=== PATIENT | male | born 1965 | race American Indian/Alaskan Native ===

== ENCOUNTER 2022-01-06 11:39 | Emergency (ER) | payer SELFPAY ==
[2022-01-06] MEDS ORDERED: ASPIRIN 325 MG TAB PO ONE (12:08)
--- NOTE | 2022-01-06 12:08 | Event Note ---
ED Screening Note ED Screening Note: 56 yo hx htn with chest pressure and dizziness on amlodipine pos fam hx- dad dec cad/ mom dec dm smoker/thc/etoh This initial assessment/diagnostic orders/clinical plan/treatment(s) is/are subject to change based on patients health status, clinical progression and re- assessment by fellow clinical providers in the ED. Further treatment and workup at subsequent clinical providers discretion. Patient/guardian urged not to elope from the ED as their condition may be serious if not clinically assessed and managed. Initial orders include: ro ACS Vital Signs 01/06/22 11:55 Temperature 98.2 F Pulse Rate 81 Respiratory 18 Rate Blood Pressure 143/89 O2 Sat by Pulse 99 Oximetry
--- NOTE | 2022-01-06 12:25 | XRay Report ---
CHEST 2 VIEWS INDICATION: Chest pain. COMPARISON: none FINDINGS: Support devices: None. Heart: Within normal limits. Lungs/pleura: No acute air space or interstitial disease. No pleural abnormality or pneumothorax. Additional findings: None. IMPRESSION: No acute findings. Signer Name: Ki Bain Jr, MD Signed: 01/06/2022 12:21 PM Workstation Name: [id number]
[2022-01-06 12:57] LABS: Basophils # (Auto) 0.1 K/mm3 (0.0-0.1); Basophils % (Auto) 1.2 % (0.0-1.8); Eosinophils # (Auto) 0.1 K/mm3 (0.0-0.4); Eosinophils % (Auto) 1.7 % (0.0-4.3); Hematocrit 50.6 % (35.5-45.6); Hemoglobin 16.8 gm/dl (11.8-15.2); Lymphocytes # (Auto) 1.9 K/mm3 (1.2-5.4); Lymphocytes % (Auto) 21.7 % (13.4-35.0); Mean Corpuscular HGB Conc 33 % (32-34); Mean Corpuscular Volume 89 fl (84-94); Monocytes # (Auto) 0.6 K/mm3 (0.0-0.8); Monocytes % (Auto) 7.4 % (0.0-7.3); Platelet Count 325 K/mm3 (140-440); Red Blood Count 5.71 M/mm3 (3.65-5.03); Red Cell Distribution Width 13.7 % (13.2-15.2)
[2022-01-06 13:13] LABS: Alanine Aminotransferase 35 units/L (7-56); Albumin 4.5 g/dL (3.9-5); BUN/Creatinine Ratio 14; Blood Urea Nitrogen 13 mg/dL (9-20); Hemolysis Index 13
--- NOTE | 2022-01-06 13:32 | Emergency Department Report ---
ED Chest Pain HPI - General Chief Complaint: Chest Pain Stated Complaint: CHEST PAIN/BP HIGH Time Seen by Provider: 01/06/22 12:09 Source: patient Mode of arrival: Ambulatory Limitations: No Limitations - History of Present Illness Initial Comments: 56 year-old male with a past medical history of hypertension, tobacco use, and family history of CAD presents to the hospital complaints of intermittent chest pain and palpitations since last night. Patient describes pain as a intermittent tightness with associated lightheadedness but denies nausea, vom iting, diaphoresis, aggravating or alleviating factors. Patient went to the dentist office today and states his pressure was 189/126 and therefore he was sent to the ER for evaluation. Patient has been compliant with his daily a.m. dose of amlodipine. Last stress test greater than 5 years ago. Patient did have symptoms upon arrival but is currently asymptomatic - Related Data Home Medications Medication Instructions Recorded Confirmed Last Taken amLODIPine [Norvasc] 5 mg PO DAILY 01/06/22 01/06/22 01/06/22 Previous Rx's Medication Instructions Recorded Last Taken Type Aspirin 325 mg PO ONCE #30 tablet 01/06/22 Unknown Rx Allergies Allergy/AdvReac Type Severity Reaction Status Date / Time No Known Allergies Allergy Verified 01/06/22 11:57 Heart Score - HEART Score History: Slightly suspicious EKG: Non-specific Age: 45-65 Risk factors: > 3 risk factors or hx of atherosclerotic disease Troponin: < normal limit HEART Score: 4 - EKG Read Time Time EKG Completed: 11:48 EKG Read Time: 11:52 ED Review of Systems ROS: Stated complaint: CHEST PAIN/BP HIGH Other details as noted in HPI ED Past Medical Hx - Past Medical History Hx Hypertension: Yes - Medications Home Medications: Home Medications Medication Instructions Recorded Confirmed Last Taken Type Aspirin 325 mg PO ONCE #30 tablet 01/06/22 Unknown Rx amLODIPine [Norvasc] 5 mg PO DAILY 01/06/22 01/06/22 01/06/22 History ED Physical Exam - General Limitations: No Limitations - Other Other exam information: General: No acute distress Head: Atraumatic Eyes: normal appearance ENT: Moist mucous membranes Neck: Normal appearance, no midline tenderness Chest: Clear to auscultation bilaterally CV: Regular rate and rhythm Abdomen: Soft, normal bowel sounds, nontender, nondistended, no rebound or guarding Back: Normal inspection Extremity: Normal inspection, full range of motion, no calf tenderness or leg Neuro: Alert O x 3, no facial asymmetry, speech clear, no gross motor sensory deficit Psych: Appropriate behavior Skin: No rash ED Course Vital Signs 01/06/22 11:55 Temperature 98.2 F Pulse Rate 81 Respiratory 18 Rate Blood Pressure 143/89 O2 Sat by Pulse 99 Oximetry LORELEI score - Lorelei Score Age > 65: (0) No Aspirin use within the Past 7 Days: (0) No 3 or more CAD Risk Factors: (1) Yes 2 or more Angina events in past 24 hrs: (1) Yes Known CAD with more than 50% Stenosis: (0) No Elevated Cardiac Markers: (0) No ST Deviation Greater than 0.5mm: (0) No LORELEI Score: 2 ED Medical Decision Making - Lab Data Result diagrams: 01/06/22 12:16 01/06/22 12:16 Lab Results 01/06/22 01/06/22 Range/Units 12:16 12:16 WBC 8.6 (4.5-11.0) K/mm3 RBC 5.71 H (3.65-5.03) M/mm3 Hgb 16.8 H (11.8-15.2) gm/dl Hct 50.6 H (35.5-45.6) % MCV 89 (84-94) fl MCH 30 (28-32) pg MCHC 33 (32-34) % RDW 13.7 (13.2-15.2) % Plt Count 325 (140-440) K/mm3 Lymph % (Auto) 21.7 (13.4-35.0) % [place] % (Auto) 7.4 H (0.0-7.3) % Eos % (Auto) 1.7 (0.0-4.3) % Baso % (Auto) 1.2 (0.0-1.8) % Lymph # (Auto) 1.9 (1.2-5.4) K/mm3 [place] # (Auto) 0.6 (0.0-0.8) K/mm3 Eos # (Auto) 0.1 (0.0-0.4) K/mm3 Baso # (Auto) 0.1 (0.0-0.1) K/mm3 Seg Neutrophils % 68.0 (40.0-70.0) % Seg Neutrophils # 5.8 (1.8-7.7) K/mm3 Sodium 140 (137-145) mmol/L Potassium 3.8 (3.6-5.0) mmol/L Chloride 103.2 (98-107) mmol/L Carbon Dioxide 26 (22-30) mmol/L Anion Gap 15 mmol/L BUN 13 (9-20) mg/dL Creatinine 0.9 (0.8-1.3) mg/dL Estimated GFR > 60 ml/min BUN/Creatinine Ratio 14 % Glucose 96 (75-100) mg/dL Calcium 10.0 (8.4-10.2) mg/dL Total Bilirubin 0.30 (0.1-1.2) mg/dL AST 27 (5-40) units/L ALT 35 (7-56) units/L Alkaline Phosphatase 147 H (35-129) units/L Troponin T < 0.010 (0.00-0.029) ng/mL Total Protein 7.3 (6.3-8.2) g/dL Albumin 4.5 (3.9-5) g/dL Albumin/Globulin Ratio 1.6 % - EKG Data -: EKG Interpreted by Wy EKG shows normal: sinus rhythm, ST-T waves (no stemi,) Rate: normal (79) - Radiology Data Radiology results: report reviewed CHEST 2 VIEWS INDICATION: Chest pain. COMPARISON: none FINDINGS: Support devices: None. Heart: Within normal limits. Lungs/pleura: No acute air space or interstitial disease. No pleural abnormality or pneumothorax. Additional findings: None. IMPRESSION: No acute findings. - Medical Decision Making 56-year-old male with chest pain and several risk factors with a heart score of 4 whom admission for stress test was recommended. I explained that although labs did not show that he has had a heart attack at this time he may still have unstable angina and be at risk for VT. Admission for stress testing recommended. Patient declined and prefers to follow-up as an outpatient. 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 He was counseled to return immediately if he experiencing worsening chest pain, nausea, vomiting, diaphoresis, or pain radiation down left arm or jaw because these may be signs of a heart attack. Nurse at the bedside. Patient voices understanding Critical Care Time: No Critical care attestation.: If time is entered above; I have spent that time in minutes in the direct care of this critically ill patient, excluding procedure time. ED Disposition Clinical Impression: Chest pain, Hypertension Disposition: LEFT AGAINST MEDICAL ADVICE Is pt being admited?: No Does the pt Need Aspirin: No Condition: Stable Instructions: Nonspecific Chest Pain, Adult, Hypertension (ED) Additional Instructions: Take an aspirin daily. Declined admission at this time therefore I cannot rule out that you have a partial blockage of your heart that may lead to a heart attack. It is very important that you follow-up with a manager of community relations as soon as possible for outpatient stress testing. Return if symptoms worsen as indicated by your discharge instructions. Prescriptions: Aspirin 325 mg PO ONCE #30 tablet Referrals: DO KEARNS MD [Staff Physician] - 2-3 Days (call office for follow up and outpatient stress testing) Forms: Work/School Release Form(ED), AMA Form Time of Disposition: 14:00
[2022-01-06 14:27] VITALS: BP 162/93
== END 2022-01-06 14:31 | disposition left against medical advice (07) ==
LOC: ED 11:39
DX: R07.9 Chest pain, unspecified (principal); I10 Essential (primary) hypertension
CPT/HCPCS: 36415; 71046; 80053; 84484; 85025; 99283

== ENCOUNTER 2022-03-11 10:25 | Emergency (ER) | payer SELFPAY ==
[2022-03-11 11:47] LABS: INR 0.82 (0.87-1.13)
--- NOTE | 2022-03-11 11:52 | XRay Report ---
CHEST 2 VIEWS INDICATION / CLINICAL INFORMATION: Chest Pain. COMPARISON: 01/06/2022 FINDINGS: SUPPORT DEVICES: None. HEART / MEDIASTINUM: No significant abnormality. LUNGS / PLEURA: No significant pulmonary or pleural abnormality. No pneumothorax. ADDITIONAL FINDINGS: No significant additional findings. IMPRESSION: 1. No acute findings. Signer Name: Anatoliy Mcintyre MD Signed: 03/11/2022 11:43 AM Workstation Name: [id number]
[2022-03-11 11:59] LABS: Alanine Aminotransferase 32 units/L (7-56); Albumin 4.3 g/dL (3.9-5); BUN/Creatinine Ratio 16; Blood Urea Nitrogen 16 mg/dL (9-20); Calcium 9.4 mg/dL (8.4-10.2); Hemolysis Index 20
--- NOTE | 2022-03-11 15:57 | Emergency Department Report ---
ED Chest Pain HPI - General Chief Complaint: Chest Pain Stated Complaint: CHEST PAIN Time Seen by Provider: 03/11/22 15:29 Source: patient Mode of arrival: Ambulatory Limitations: No Limitations - History of Present Illness Initial Comments: 56-year-old black male with a past medical history of hypertension presents to the emergency department for evaluation of left chest pain that started last night. He states that pain is nonradiating and worse with breathing. He states that he is also had some intermittent shortness of breath with the chest pain. He denies nausea, vomiting, diaphoresis. He states that pain is very worse is 9 out of 10 but now he states that he is not having any pain at all. MD Complaint: chest pain -: Gradual, days(s) (1) Onset: during rest Pain Radiation: none Severity: moderate Severity scale (0 -10): 9 Quality: aching, sharp Consistency: intermittent Worsens With: inspiration re: dyspnea. denies: nausea, vomting, diaphoresis, sense of impending doom Other Symptoms: denies: cough, fever, syncope, acid taste in mouth, leg swelling, palpitations, burping Treatments Prior to Arrival: none Aspirin use within the Past 7 Days: (0) No - Related Data Home Medications Medication Instructions Recorded Confirmed Last Taken amLODIPine [Norvasc] 5 mg PO DAILY 01/06/22 01/06/22 01/06/22 Previous Rx's Medication Instructions Recorded Last Taken Type Aspirin 325 mg PO ONCE #30 tablet 01/06/22 Unknown Rx Naproxen [Naprosyn] 500 mg PO BID #14 tab 03/11/22 Unknown Rx Allergies Allergy/AdvReac Type Severity Reaction Status Date / Time No Known Allergies Allergy Verified 03/11/22 11:10 Heart Score - HEART Score History: Slightly suspicious EKG: Non-specific Age: 45-65 Risk factors: 1-2 risk factors Troponin: < normal limit HEART Score: 3 - EKG Read Time Time EKG Completed: 11:11 EKG Read Time: 11:20 - Critical Actions Critical Actions: 0-3 pts:0.9-1.7%risk of adverse cardiac event.Candidate for discharge ED Review of Systems ROS: Stated complaint: CHEST PAIN Other details as noted in HPI Comment: All other systems reviewed and negative Constitutional: denies: chills, fever, malaise, weakness ENT: denies: congestion Respiratory: shortness of breath. denies: cough, SOB with exertion, SOB at rest, stridor, wheezing Cardiovascular: chest pain. denies: palpitations, dyspnea on exertion, orthopnea, edema, syncope, paroxysmal nocturnal dyspnea Gastrointestinal: denies: abdominal pain, nausea, vomiting, diarrhea, hematemesis, melena, hematochezia Genitourinary: denies: urgency, dysuria, frequency, hematuria, discharge Musculoskeletal: denies: back pain Skin: denies: rash, lesions Neurological: denies: headache, weakness Psychiatric: denies: anxiety, depression ED Past Medical Hx - Past Medical History Hx Hypertension: Yes - Social History Smoking Status: Current Every Day Smoker Substance Use Type: Alcohol - Medications Home Medications: Home Medications Medication Instructions Recorded Confirmed Last Taken Type Aspirin 325 mg PO ONCE #30 tablet 01/06/22 Unknown Rx amLODIPine [Norvasc] 5 mg PO DAILY 01/06/22 01/06/22 01/06/22 History Naproxen [Naprosyn] 500 mg PO BID #14 tab 03/11/22 Unknown Rx ED Physical Exam - General Limitations: No Limitations General appearance: alert, in no apparent distress - Head Head exam: Present: atraumatic, normocephalic - Eye Eye exam: Present: normal appearance. Absent: conjunctival injection - Neck Neck exam: Present: normal inspection, full ROM. Absent: tenderness, lymphadenopathy - Respiratory Respiratory exam: Present: normal lung sounds bilaterally, chest wall ten derness. Absent: respiratory distress, wheezes, rales, rhonchi, stridor - Cardiovascular Cardiovascular Exam: Present: regular rate, normal heart sounds - GI/Abdominal GI/Abdominal exam: Present: soft, normal bowel sounds. Absent: distended, tenderness, guarding, rebound, rigid - Extremities Exam Extremities exam: Present: normal inspection, normal capillary refill. Absent: tenderness, pedal edema, joint swelling, calf tenderness - Back Exam Back exam: Present: normal inspection. Absent: CVA tenderness (R), CVA tenderness (L), vertebral tenderness - Neurological Exam Neurological exam: Present: alert, oriented X3, normal gait - Psychiatric Psychiatric exam: Present: normal affect, normal mood - Skin Skin exam: Present: warm, dry, intact, normal color ED Course Vital Signs 03/11/22 03/11/22 11:08 16:35 Temperature 98 F Pulse Rate 78 76 Respiratory 16 18 Rate Blood Pressure 138/92 Blood Pressure 136/85 [Right] O2 Sat by Pulse 98 99 Oximetry LORELEI score - Lorelei Score Age > 65: (0) No Aspirin use within the Past 7 Days: (0) No 3 or more CAD Risk Factors: (1) Yes 2 or more Angina events in past 24 hrs: (1) Yes Known CAD with more than 50% Stenosis: (0) No Elevated Cardiac Markers: (0) No ST Deviation Greater than 0.5mm: (0) No LORELEI Score: 2 ED Medical Decision Making - Lab Data Result diagrams: 03/11/22 11:21 - EKG Data EKG shows normal: sinus rhythm - EKG Data Interpretation: no acute changes - Radiology Data Radiology results: report reviewed, image reviewed - Medical Decision Making 56-year-old black male with a past medical history of hypertension presents to the emergency department for evaluation of left chest pain that started last night. He states that pain is nonradiating and worse with breathing. He states that he is also had some intermittent shortness of breath with the chest pain. He denies nausea, vomiting, diaphoresis. He states that pain at its very worse is 9 out of 10 but now he states that he is not having any pain at all. EKG without any acute ischemic changes noted, troponin within normal limits x2, chest x-ray without any acute abnormalities noted, chest pain resolved, and heart score of 3. Low suspicion for ACS. Patient will be discharged home with a prescription for naproxen and advised to follow-up with his primary care provider and cardiology for further evaluation and management. He is advised to return to the emergency department as needed. He verbalizes understanding of and agreement with plan of care. Critical care attestation.: If time is entered above; I have spent that time in minutes in the direct care of this critically ill patient, excluding procedure time. ED Disposition Clinical Impression: Chest pain Qualifiers: Chest pain type: unspecified Qualified Code(s): R07.9 - Chest pain, unspecified Disposition: 01 HOME / SELF CARE / HOMELESS Is pt being admited?: No Does the pt Need Aspirin: No Condition: Stable Instructions: Chest Wall Pain, [id number], Nonspecific Chest Pain, Adult Additional Instructions: Take medications as prescribed. Follow-up with primary care provider and cardiology for further evaluation and management. Return to the emergency department as needed. Prescriptions: Naproxen [Naprosyn] 500 mg PO BID #14 tab Referrals: PATRICIA AVILA MD [Primary Care Provider] - 3-5 Days DO KEARNS MD [Staff Physician] - 3-5 Days Forms: Work/School Release Form(ED) Time of Disposition: 15:56
[2022-03-11 16:36] VITALS: BP 138/92
--- NOTE | 2022-03-12 10:11 | Electrocardiograph Report ---
[facility] Test Date: 2022-03-11 Test Time: 11:11:23 Pat Name: CM IRAHETA Department: Room: Gender: M Weight Shifter: PATRICIO DRISCOLL: 1965 Requested By: ED DOC Order Number: [id number] Reading MD: Sravan Oconnor Measurements Intervals [place] Rate: 79 P: 60 SD: 156 QRS: 22 QRSD: 84 T: 23 QT: 353 QTc: 404 Interpretive Statements Sinus rhythm Consider left ventricular hypertrophy ST elevation suggests acute pericarditis Compared to ECG 01/06/2022 11:48:52 ST (T wave) deviation now present Electronically Signed On 03-12-2022 10:11:24 EDT by Sravan Oconnor
== END 2022-03-11 16:13 | disposition home or self-care (01) ==
LOC: ED 10:25
DX: R07.89 Other chest pain (principal)
CPT/HCPCS: 71046; 80053; 84484; 85610; 85730; 93005; 99283